=== PATIENT | female | born 2000 ===

== ENCOUNTER → 2018-02-02 | Outpatient (CLI) | payer OTHER | END | disposition home or self-care (01) | LOC: C.LABSPEC 17:36 | PROVIDERS: ATTEND Physician Assistant | DX: Z01.419 Encounter for gynecological examination (general) (routine) without abnormal findings (principal) ==

== ENCOUNTER 2018-07-14 15:12 | Emergency (ER) | payer OTHER ==
[~2018-07-14] VITALS: Ht 170.2 cm; Wt 71.9 kg
[2018-07-14 15:19] VITALS: BP 145/87; PULSE 88; TEMP 36.9; O2SAT 98; Ht 170.2 cm; Wt 71.9 kg
[2018-07-14] MEDS ORDERED: LIDOCAINE 1% BUFFERED INJ 20 ML VIAL INFIL STA (15:29)
[2018-07-14] MEDS ORDERED: CEPHALEXIN MONOHYDRATE 250 MG CAP PO STA (15:32)
--- NOTE | 2018-07-14 15:42 | EMERGENCY ROOM VISIT NOTE ---
ED Visit Note First contact with patient: 15:22 CHIEF COMPLAINT: Right 5th toe laceration HISTORY OF PRESENT ILLNESS: This 18-year-old female patient presents to the emergency department, ambulatory, approximately 1 hour after cutting the plantar aspect of the 5th toe at the base. The patient [place] river when she believes her foot got caught on a rock. She states she did immediately clean the wound especially could, however she walked home on it in bare feet prior to having a bandaged by a friend. The bleeding has stopped. Denies weakness or numbness of the toe. The patient rates the pain as sharp and 3/10. The patient denies any other injuries. The patient's Tetanus shot is not up to date. REVIEW OF SYSTEMS: A 6 system review of systems was completed with positives and pertinent negatives listed in the HPI. ALLERGIES: None MEDICATIONS: OCP PMH: None SOCIAL HISTORY: The patient lives locally with family. She denies drug, alcohol , tobacco use. PHYSICAL EXAM: Vital Signs: Reviewed Nurse's notes, vital signs stable. GENERAL : This is a 18 year old white female, in no acute distress, well-developed, well-nourished. SKIN: There is a 1 cm long laceration on the plantar aspect of the base of the right 5th toe. The edges gape apart with traction. There is no foreign material in the wound and it looks clean. There is no active bleeding. No deep structures such as tendons, bones, or significant blood vessels are seen in the base of the wound. Normal strength and movement of the right 5th toe. Capillary refill less than 2 seconds. Normal sensation to light and sharp touch. EMERGENCY DEPARTMENT COURSE: I examined the patient. Verbal consent was obtained to perform the procedure. Using sterile technique the wound was cleansed with Betadine. The area was sterilely draped. 2 ml of 1% buffered lidocaine was used to anesthetize the laceration on the right 5th toe. Once the patient was anesthetized, the wound was copiously irrigated under pressure with sterile saline. The wound was explored and was as described above. The laceration was repaired using 5 simple interrupted 5-0 nylon sutures with the wound edges being well approximated. The patient tolerated the procedure well. Hemostasis was achieved. The area was cleaned with sterile saline and dressed with bacitracin ointment and bandage. The patient was given Tdap immunization. The patient was given her first dose of Keflex here in the emergency department. Discharge instructions reviewed. The patient was discharged home in good condition. I attest that I have personally reviewed the patient's current medication list. Patient was found to have normal blood pressure on screening and does not require follow-up. Differential diagnosis includes laceration, contusion, fracture, sprain/strain, tendon or ligament injury, neurovascular compromise, foreign body, assault, and others DIAGNOSIS: Left 5th toe laceration The chart was completed utilizing [employer] Speech voice recognition software. Grammatical errors, random word insertions, pronoun errors, and incomplete sentences are an occasional consequence of this system due to software limitations, ambient noise, and hardware issues. Any formal questions or concerns about the content, text, or information contained within the body of this dictation should be directly addressed to the provider for clarification. Current/Historical Medications Scheduled Control Pills ( Control Pills), 1 TAB PO DAILY Cephalexin Monohydrate (Keflex), 500 MG PO QID Allergies Coded Allergies: No Known Allergies (Unverified , 07/14/18) Vital Signs Date Time Temp Pulse Resp B/P (MAP) Pulse Ox O2 Delivery O2 Flow Rate FiO2 07/14/18 15:19 36.9 88 18 145/87 98 Room Air Medications Administered Medications (Trade) Dose Ordered Sig/Galina Route Start Time Stop Time Status Last Admin Dose Admin Lidocaine HCl (Buffered Lidocaine 1% Inj) 20 ml ONE STAT INFIL 07/14/18 15:29 07/14/18 15:31 DC 07/14/18 15:29 20 ML Diphtheria/ Pertussis/Tetanus Vacc (Adacel Inj) 0.5 ml ONCE ONCE IM. 07/14/18 15:45 07/14/18 15:46 DC 07/14/18 15:39 0.5 ML Cephalexin Monohydrate (Keflex Cap) 500 mg NOW STAT PO 07/14/18 15:32 07/14/18 15:33 DC 07/14/18 15:38 500 MG Departure Information Impression Primary Impression: Laceration of toe of right foot Dispostion Home / Self-Care Condition GOOD Prescriptions Cephalexin Monohydrate (Keflex) 500 Mg Cap 500 MG PO QID for 5 Days, #20 CAP Prov: Mihaela Lynch, PARandallC 07/14/18 Referrals No Doctor, Assigned (PCP) Patient Instructions ED Laceration Foot, My [facility] Additional Instructions You have received 5 sutures on your right fifth toe. These sutures are NOT dissolvable and WILL need to be removed by a health care provider in 12-14 days. You can return to the Emergency Department or contact your Primary Care Provider to have the sutures removed. Proper wound care is essential for adequate wound healing and infection prevention. You can shower and clean the wound with soap and water. Do not scour over the wound, pat dry with a towel. Do not submerse the wound (i.e. bathe or dish wash) until the sutures have been removed. You can use an antibiotic ointment such as Bacitracin, with a dressing over the wound for the next 3-4 days. After this time you may leave the wound dry and open to the air. If crust develops over the wound you can use a Q-tip to apply a 1:1 peroxide: water solution to clean the wound. Cephalexin(Keflex) 500mg: Take one pill four times daily for 5 days to prevent skin infection. All antibiotics can cause diarrhea. If this occurs and you feel worse or it does not resolve in 1-2 days follow up with your doctor or return to the Emergency Department as this could be signs of serious underlying problems. Any medication can cause an allergic reaction, stop the pills immediately and return to the ER for rash, hives, breathing difficulties, or swelling. Look for signs of infection of the wound including: increased pain, swelling, foul discharge, streaking, or increased temperature. If any of these are noticed you should return to the Emergency Department for further assessment and treatment. As with any laceration you may have received nerve damage to the surrounding tissues. This damage may or may not be permanent. You should keep the area covered with sunscreen for the first 6 months to 1 year when at risk for exposure to help minimize scarring. For pain control, you can use the following [id number] medicines (if >12 yo): Ibuprofen(Motrin, Advil) may be used for fever or pain. Use 600mg every six hours as needed. Take with food. Avoid using more than 2400mg in a 24 hour period. Do not use 2400mg per day for more than three consecutive days without physician direction. Prolonged inappropriate use can lead to stomach upset or ulcers. (AND/OR) Acetaminophen(Tylenol) may be used for fever or pain. Use 1000mg every six hours as needed. Avoid using more than 3000mg in a 24 hour period. Return to the emergency department if your symptoms worsen despite treatment course outlined above. Problem Qualifiers Primary Impression: Laceration of toe of right foot Encounter type: initial encounter Toe: lesser toe Damage to nail status: without damage Foreign body presence: without foreign body Qualified Codes: S91.114A - Laceration without foreign body of right lesser toe(s) without damage to nail, initial encounter
[2018-07-14] MEDS ORDERED: DIPHTHERIA/TETANUS/PERTUSSIS 0.5 ML SYR/VIAL IM. ONE (15:45)
[2018-07-14] MEDS ORDERED: BCPILLS PO (15:58)
[2018-07-14] MEDS ORDERED: CEPH500C PO (16:07)
== END 2018-07-14 16:12 | disposition home or self-care (01) ==
LOC: C.EDB 15:15 → C.EDD 16:12
DX: S91.114A Laceration without foreign body of right lesser toe(s) without damage to nail, initial encounter (principal); W26.8XXA Contact with other sharp object(s), not elsewhere classified, initial encounter; Y93.16 Activity, rowing, canoeing, kayaking, rafting and tubing; Z79.3 Long term (current) use of hormonal contraceptives; Z23 Encounter for immunization